=== PATIENT | male | born 1995 | race African-American/Black ===

== ENCOUNTER 2020-12-05 11:14 | Emergency (ER) | payer OTHER ==
[~2020-12-05] VITALS: Ht 175.3 cm; Wt 99.8 kg
[2020-12-05] MEDS ORDERED: HYDROCODON-ACE1 EAC7 PO ×2 (12:31→12:39)
[2020-12-05 12:39] VITALS: BP 130/71
== END 2020-12-05 12:39 | disposition home or self-care (01) ==
LOC: M.ERS 11:14
DX: T21.12XA Burn of first degree of abdominal wall, initial encounter (principal); T31.0 Burns involving less than 10% of body surface; X10.0XXA Contact with hot drinks, initial encounter; Y93.89 Activity, other specified; Y92.89 Other specified places as the place of occurrence of the external cause; Y99.8 Other external cause status